=== PATIENT | female | born 1970 | race Caucasian/White ===

== ENCOUNTER 2016-12-05 23:47 | Emergency (ER) | payer OTHER ==
[~2016-12-05] VITALS: Ht 157.5 cm; Wt 90.7 kg
--- NOTE | ~2016-12-05 | CR72 ---
[facility]. [facility] A Service of [facility] & [facility] RADIOLOGY TEXT RESULTS PATIENT: CATHRYN FONTAINE LOCATION: SED : 68 UNIT #: [id number] AGE: [address]: Ammon Rodriguez MD SEX: F ORDER DR: [id number] [address] [address] [id number] MR#: [id number] Acc #: [id number] NAME: CTAHRYN FONTAINE : 1970 SEX: F STUDY DATE/TIME: 12/06/2016 0:44 UNIT: SED ROOM: STUDY DESCRIPTION: CR Chest Single View Portable Attending Physician: Ammon Rodriguez M.D. Ordering Physician: Ammon Rodriguez M.D. MEDICAL IMAGING REPORT This report is preliminary unless electronic signature is present. EXAM Chest x-ray 12/06/2016 HISTORY 46-year-old female in the ED complaining of chest pain radiating down left arm. Chest pressure. Symptoms for about 1 week. TECHNIQUE AP portable upright chest x-ray. FINDINGS Lung volumes are low, partially related to patient body habitus. The lungs are grossly clear. No visible pulmonary infiltrate or pleural effusion. Heart size and pulmonary vascularity are within normal limits. No significant change since 06/04/2007. IMPRESSION Negative chest. Dictated by... Daniel Alvarado M.D. THIS IS AN ELECTRONICALLY VERIFIED REPORT Daniel Alvarado M.D. at 12/06/2016 9:45 PM RGW/trevin TD: 12/06/2016 09:04 JOB #: [id number] MEDICAL IMAGING REPORT Page 1 of 1
--- NOTE | ~2016-12-05 | EKG ---
PATIENT: CATHRYN FONTAINE UNIT #: [id number] Ventricular Rate: 86 BPM Atrial Rate: 86 BPM P-R Interval: 136 ms QRS Duration: 78 ms Q-T Interval: 372 ms QTC Calculation(Bezet): 445 ms P [place]: 43 degrees Calculated R [place]: 8 degrees Calculated T [place]: 58 degrees Diagnosis Line: Normal sinus rhythm Diagnosis Line: Low voltage QRS Diagnosis Line: Borderline ECG Diagnosis Line: No previous ECGs available Diagnosis Line: Confirmed by CHRIS BATEMAN MD ([id number]) on Diagnosis Line: 12/08/2016 8:03:34 AM INTERPRETING MD: BHAVANA ARAIZA
[2016-12-06 00:15] LABS: BASOPHIL# 0.1 X10e3 (0-0.3); BASOPHIL% 1.5 % (0-2.5); EOSINOPHIL# 0.2 X10e3 (0-0.7); EOSINOPHIL% 2.2 % (0.0-7.0); HEMATOCRIT 41.9 % (35.0-45.0); HEMOGLOBIN 14.5 gm/dL (12.0-16.0); LYMPHOCYTE% 39.7 % (17.0-45.0); MEAN CELL VOLUME 85.9 FL (83-96); MEAN CORPUSCULAR HEMOGLOBIN 29.7 PG (28-34); MEAN CORPUSCULAR HGB CONC 34.5 g/dL (30-36); MEAN PLATELET VOLUME 8.6 FL (6.5-11.5); MONOCYTE# 0.5 X10e3 (0-1.0); MONOCYTE% 6.4 % (3.0-12.0); NEUTROPHIL# 3.8 X10e3 (1.5-7.1); NEUTROPHIL% 50.2 % (40-75); PLATELET COUNT 250 X10e3 (140-420); RED BLOOD COUNT 4.88 X10e (3.90-5.30); RED CELL DISTRIBUTION WIDTH 12.6 % (11.0-15.5); WHITE BLOOD COUNT 7.5 X10e3 (4.0-10.5)
[2016-12-06 00:17] LABS: DIFF IND NO
[2016-12-06 00:22] LABS: PROTHROMBIN TIME (PATIENT) 11.1 SECONDS (9.5-12.4)
[2016-12-06 00:27] LABS: POC - CKMB <1.0 ng/mL (0.0-7.9); POC - TROPONIN <0.05 ng/mL (<=0.05)
[2016-12-06 00:28] LABS: ALBUMIN SERUM 3.8 g/dL (3.5-5.0); ALKALINE PHOSPHATASE 116 U/L (32-92); ALT (SGPT) 22 U/L (10-40); AST (SGOT) 15 U/L (10-42); BILIRUBIN,TOTAL 0.3 mg/dL (0.2-2.0); BLOOD UREA NITROGEN 21 mg/dL (9-23); BUN/CREATININE RATIO 23.33; CALCIUM SERUM 8.9 mg/dL (8.4-10.2); CARBON DIOXIDE 23 mmol/L (22-31); CHLORIDE 105 mmol/L (100-111); CREATININE SERUM 0.9 mg/dL (0.6-1.4); GLOM FILT RATE Estimated 76.2 mL/min (>60); GLUCOSE FASTING 419 mg/dL (70-110); POTASSIUM 3.8 mmol/L (3.5-5.1); PROTEIN TOTAL SERUM 7.1 g/dL (6.0-8.3); SODIUM 132 mmol/L (135-145)
[2016-12-06 00:29] LABS: PARTIAL THROMBOPLASTIN TIME 20.9 SECONDS (25.6-38.1)
[2016-12-06 00:35] LABS: BILIRUBIN, DIRECT <0.1 mg/dL (0.0-0.2); BILIRUBIN,INDIRECT 0.2 mg/dL (0.0-0.9)
[2016-12-06 02:03] LABS: POC - CKMB <1.0 ng/mL (0.0-7.9); POC - MYOGLOBIN 33.7 ng/mL (0.0-169.0)
[2016-12-06 02:04] LABS: POC - TROPONIN <0.05 ng/mL (<=0.05)
== END 2016-12-06 04:57 ==
LOC: SED 23:47
PROVIDERS: Emergency Medicine
DX: R07.89 Other chest pain (principal); E11.65 Type 2 diabetes mellitus with hyperglycemia; Z91.14 Patient's other noncompliance with medication regimen; E78.00 Pure hypercholesterolemia, unspecified; Z91.040 Latex allergy status
CPT/HCPCS: 36415; 71010; 80048; 80076; 82553; 82947; 83874; 84484; 85025; 85610; 85730; 93005; 96361; 96374; 99285